=== PATIENT | male | born 1945 | race Caucasian/White ===

== ENCOUNTER 2016-09-17 09:18 | Observation (INO) ==
[2016-09-17 10:40] LABS: CLARITY SL. CLOUDY (CLEAR); COLOR YELLOW
[2016-09-17 10:41] LABS: BILIRUBIN URINE NEGATIVE (NEGATIVE); BLOOD URINE 3+ (NEGATIVE); GLUCOSE URINE NEGATIVE (NEGATIVE); LEUKOCYTES URINE 2+ (NEGATIVE); NITRITE URINE NEGATIVE (NEGATIVE); PROTEIN URINE 1+(30 mg/dL) mg/dL (NEGATIVE); UROBILINOGEN URINE 2+(4 mg/dL)
[2016-09-17 10:42] LABS: URINE EPITHELIAL CELLS <10 /HPF (<10); URINE WBC TNTC /HPF (<10)
[2016-09-17 10:43] LABS: URINE CAST GRANULAR PRESENT /LPF; URINE CRYSTAL NONE SEEN /HPF; URINE CULTURE PL NEEDED? YES; URINE SOURCE CLEAN CATCH
[2016-09-17] MEDS ORDERED: XYLOCAINE-MPF 1% INJ ONE (11:05)
[2016-09-17] MEDS ORDERED: ROCEPHIN IM ONE (11:05)
[2016-09-17] MEDS ORDERED: ZOFRAN IV ONE (11:17)
[2016-09-17] MEDS ORDERED: NS 1,000 ML IV ONE ×2 (11:17→13:20)
[2016-09-17] MEDS ORDERED: ROCEPHIN 1 GM/NS 1 GM/50 ML IVPB IV ONE ×2 (11:17→12:24)
[2016-09-17 11:55] LABS: BASO% 0.2 % (0.0-0.8); EOS# 0.02 X1000 (0.0-0.7); EOS% 0.1 % (0.0-10.0); HEMATOCRIT 34.6 % (42.0-52.0); HEMOGLOBIN 11.1 g/dL (14.0-18.0); IMM GRAN# 0.04 X1000 (0.0-0.04); IMM GRAN% 0.2 % (0.0-0.5); LYMPH# 0.63 X1000 (1.2-3.4); LYMPH% 3.6 % (20.5-51.1); MANUAL DIFF NEEDED? NO; MCH 25.7 PG (27-31); MCHC 32.1 g/dL (33-37); MCV 80.1 FL (81-99); MONO# 1.48 X1000 (0.11-0.59); MONO% 8.6 % (1.7-9.3); MPV 9.8 FL (7.4-10.4); NEUT% 87.3 % (42.2-75.2); PLT 259 X1000 (130-400); RBC 4.32 XMIL (4.7-6.1)
[2016-09-17 12:14] LABS: AGAP 7; ALBUMIN 3.4 g/dL (3.5-5.0); ALKALINE PHOSPHATASE 69 U/L (32-122); AMYLASE 34 U/L (20-200); BUN 7 mg/dL (8-22); CALCIUM 8.6 mg/dL (8.8-10.2); CHLORIDE 97 mmol/L (98-107); COSMO 265; GOT 26 U/L (10-34); GPT 26 U/L (10-44); LIPASE 24 U/L (13-60); POTASSIUM 4.3 mmol/L (3.5-5.1); SODIUM 133 mmol/L (136-145); TCO2 29 mmol/L (25-35); TOTAL PROTEIN 6.6 g/dL (6.3-8.3)
--- NOTE | 2016-09-17 13:15 | PROVIDER DOCUMENTATION ---
This chart was entered by Alec Cueva Scribe, acting as scribe for Jake Bolivar MD. HPI-Male Problem - General Chief Complaint: UTI Symptoms Stated Complaint: URINARY RETENTION Time Seen by Provider: 09/17/16 09:22 Source: patient Allergies/Adverse Reactions: Patient Allergies Allergy/AdvReac Type Severity Reaction Status Date / Time No Known Allergies Allergy Verified 07/19/16 09:19 Home Medications: Home Medication List Medication Instructions Recorded Confirmed Last Taken Type Albuterol [Albuterol Neb] 2.5 mg INH RTQ4H 07/19/16 09/17/16 Unknown History Amlodipine [Norvasc] 10 mg PO DAILY 07/19/16 09/17/16 Unknown History Aspirin 81 mg PO DAILY 07/19/16 09/17/16 Unknown History Folic Acid 1 mg PO DAILY 07/19/16 09/17/16 Unknown History Gabapentin [Gabapentin] 300 mg PO TID 07/19/16 09/17/16 Unknown History Hydrocodone/APAP 7.5 mg/325 mg 1 each PO Q6H PRN PRN #20 tablet 07/19/16 Unknown Rx [[place]-7.5] Hydrocodone/APAP 7.5 mg/325 mg 1 tab PO Q6-8H PRN PRN 07/19/16 09/17/16 Unknown History [[place]-7.5] Lisinopril/Hydrochlorothiazide 1 each PO DAILY 07/19/16 09/17/16 Unknown History [Lisinopril-Hctz 10-12.5 mg Tab] Lorazepam [Ativan] 0.5 mg PO QHS 07/19/16 09/17/16 Unknown History Omeprazole 20 mg PO DAILY 07/19/16 09/17/16 Unknown History Orphenadrine Citrate 100 mg PO BID 07/19/16 09/17/16 Unknown History - History of Present Illness-Male Nature of Presenting Problem: Patient is a 71 y/o M that presents to the ER with 2 days of dysuria and urinary retention. patient reports able to urinate but in small amounts. Patient denies fever/chills, cough/congestion, or abdominal pain. He did work outside 4 days ago and felt he was overheated. Location of Complaint: reports: urethral Quality of Pain: reports: burning Severity in ED: reports: mild Onset/Duration: reports: gradual, 2 days ago Timing: reports: still present, constant Context/Activities at Onset: reports: other (heat exposure) Urinary Symptoms: reports: dysuria, frequency, retention Associated Symptoms: reports: none Associated Symptoms: denies: back/neck pain, cough, fever/chills, nausea, sensory/motor loss, swelling/mass in abdomen, vomiting Similar Symptoms Previously?: No Recently seen or treated by another doctor?: No Review of Systems - Adult - REVIEW OF SYSTEMS - ADULT Constitutional: reports: chills. denies: fever Eyes: reports: no symptoms reported Ears, Nose, Mouth & Throat: denies: ear discharge, ear pain, sinus problem, throat pain, throat swelling Cardiovascular: denies: chest pain, palpitations, syncope Respiratory: denies: cough, shortness of breath, wheezing Gastrointestinal: denies: abdominal pain, diarrhea, nausea, vomiting Genitourinary: reports: dysuria, frequency, urinary retention Musculoskeletal: reports: no symptoms reported Integumentary: reports: no symptoms reported Neurological: reports: no symptoms reported Psychiatric: reports: no symptoms reported Endocrine: reports: no symptoms reported Hematologic/Lymphatic: reports: no symptoms reported Allergic/Immunologic: reports: no symptoms reported All Other Systems: Reviewed and Negative Past History - Adult - PAST MEDICAL HISTORY-ADULT Review of Records: reports: Old Records Reviewed, Nursing Assessment Review, Medications Reviewed Cardiovascular: reports: HTN - PRIOR SURGERIES/PROCEDURES Surgical/Procedure History: reports: back/neck (back) - IMMUNIZATION STATUS Childhood Immunizations: See Nurse Assessment Flu Vaccine: See Nurse Assessment - FAMILY HISTORY Family History: reviewed, not pertinent - SOCIAL HISTORY Smoking: cigarettes, less than 1 pack/day Alcohol Use Frequency: occasionally Living Situation: family Physical Exam-General - PHYSICAL EXAM-ADULT Initial Vital Signs Reviewed: Yes - CONSTITUTIONAL General Appearance: alert, no apparent distress - EYES Eyes: PERRL/EOMI, pink conjunctivae - HEAD, EARS, NOSE, MOUTH & THROAT HENMT: normocephalic/atraumatic, moist mucous membranes, normal ENT inspection - NECK Neck: full range of motion, normal inspection - RESPIRATORY Respiratory: lungs clear, normal breath sounds, no respiratory distress, no accessory muscle use - CARDIOVASCULAR Cardiovascular: regular rate, rhythm, no edema - GASTROINTESTINAL (ABDOMEN) Abdominal Exam: normal bowel sounds, non tender, soft, no organomegaly, no pulsatile mass - MUSCULOSKELETAL Back Exam: no CVA tenderness, no vertebral tenderness Extremity: normal range of motion, normal inspection, no pedal edema - SKIN Integumentary: normal color, warm/dry - NEUROLOGIC Neurologic: washer assembler II-XII nml as tested, no motor/sensory deficits - PSYCHIATRIC Psych/Mental Status: normal mood/affect, normal thought content, normal thought process, oriented x 3 Progress - PLAN OF CARE/RESULTS Progress/Plan/Lab Results: Vital Signs - 8 hr 09/17/16 09:21 09/17/16 12:51 09/17/16 12:56 Temperature 97.9 F 98.5 F Pulse Rate 92 H 76 82 Respiratory Rate 18 20 20 Blood Pressure 135/71 98/58 104/66 O2 Sat by Pulse Oximetry 100 90 L 90 L Laboratory Results - last 24 hr 09/17/16 09/17/16 09/17/16 09:35 11:36 11:36 WBC 17.27 H RBC 4.32 L Hgb 11.1 L Hct 34.6 L MCV 80.1 L MCH 25.7 L MCHC 32.1 L RDW Std Deviation 19.8 H Plt Count 259 MPV 9.8 Immature Gran % (Auto) 0.2 Neut % (Auto) 87.3 H Lymph % (Auto) 3.6 L Brewster % (Auto) 8.6 Eos % (Auto) 0.1 Baso % (Auto) 0.2 Immature Gran # (Auto) 0.04 Neut # (Auto) 15.07 H Lymph # (Auto) 0.63 L Brewster # (Auto) 1.48 H Eos # (Auto) 0.02 Baso # (Auto) 0.03 Sodium 133 L Potassium 4.3 Chloride 97 L Carbon Dioxide 29 Anion Gap 7 BUN 7 L Creatinine 0.6 L Estimated GFR/1.73 m2 > 60 BUN/Creatinine Ratio 12 Glucose 116 H Calculated Osmolality 265 Calcium 8.6 L Total Bilirubin 0.40 AST 26 ALT 26 Alkaline Phosphatase 69 Total Protein 6.6 Albumin 3.4 L Globulin 3.0 Albumin/Globulin Ratio 1.0 Amylase 34 Lipase 24 Urine Source CLEAN CATCH Urine Color YELLOW Urine Clarity SL. CLOUDY A Urine pH 9.0 Ur Specific [place] 1.010 Urine Protein 1+(30 mg/dL) A Urine Ketones 2+(Moderate) A Urine Blood 3+ A Urine Nitrite NEGATIVE Urine Bilirubin NEGATIVE Urine Urobilinogen 2+(4 mg/dL) Urine Microscopic RBC 10-20 A Urine WBC 2+ A Urine Microscopic WBC TNTC A Ur Epithelial Cells <10 Urine Crystals NONE SEEN Urine Bacteria 3+ Urine Casts GRANULAR PRESENT Urine Yeast NONE SEEN Urine Glucose NEGATIVE Orders Category Date Time Status Bladder Scan and Record Result ORDERED Care 09/17/16 09:28 Active Saline Loc DIRECTED Care 09/17/16 11:17 Active NPO Diet 09/17/16 11:17 Active AMYLASE [CHEM] Stat Lab 09/17/16 11:36 Completed BLOOD CULTURE [BLDCUL] Stat Lab 09/17/16 12:55 Ordered CBC WITH ELECTRONIC DIFF [HEME] Stat Lab 09/17/16 11:36 Completed COMPREHENSIVE METABOLIC PANEL [CHEM] Stat Lab 09/17/16 11:36 Completed LACTATE, PLASMA [CHEM] Stat Lab 09/17/16 12:55 Ordered LIPASE [CHEM] Stat Lab 09/17/16 11:[address] W/POSS RFLX CULT [URINALYSIS] Stat Lab 09/17/16 09:35 Completed URINE CULTURE [RM] Routine Lab 09/17/16 10:45 Ordered 0.9% Sodium Chloride Inj [Ns] 1,000 ml Med 09/17/16 11:17 Discontinued IV 999 mls/hr CefTRIAXONE 1 GM/NS [Rocephin 1 gm/Ns] Med 09/17/16 11:17 Discontinued 1 gm in 50 ml IV NOW CefTRIAXONE 1 GM/NS [Rocephin 1 gm/Ns] Med 09/17/16 12:24 Discontinued 1 gm in 50 ml IV NOW CefTRIAXONE [Rocephin] Med 09/17/16 11:05 Discontinued 1 gm IM NOW ONE Lidocaine 1% Pf [Xylocaine-Mpf 1%] Med 09/17/16 11:05 Discontinued 5 ml INJ NOW ONE Ondansetron [Zofran] Med 09/17/16 11:17 Discontinued 4 mg IV NOW ONE Orders Category Date Time Status Bladder Scan and Record Result ORDERED Care 09/17/16 09:[address] W/POSS RFLX CULT [URINALYSIS] Stat Lab 09/17/16 09:35 Completed URINE CULTURE [RM] Routine Lab 09/17/16 10:45 Ordered CefTRIAXONE [Rocephin] Med 09/17/16 11:05 Discontinued 1 gm IM NOW ONE Lidocaine 1% Pf [Xylocaine-Mpf 1%] Med 09/17/16 11:05 Discontinued 5 ml INJ NOW ONE Vital Signs Temp Pulse Resp BP Pulse Ox 09/17/16 09:21 97.9 F 92 H 18 135/71 100 No Known Allergies Allergy (Verified 07/19/16 09:19) Albuterol [Albuterol Neb] 2.5 mg INH RTQ4H 07/19/16 Amlodipine [Norvasc] 10 mg PO DAILY 07/19/16 Aspirin 81 mg PO DAILY 07/19/16 Folic Acid 1 mg PO DAILY 07/19/16 Gabapentin [Gabapentin] 300 mg PO TID 07/19/16 Hydrocodone/APAP 7.5 mg/325 mg [[place]-7.5] 1 each PO Q6H PRN PRN #20 tablet 10/27 Hydrocodone/APAP 7.5 mg/325 mg [[place]-7.5] 1 tab PO Q6-8H PRN PRN 07/19/16 Lisinopril/Hydrochlorothiazide [Lisinopril-Hctz 10-12.5 mg Tab] 1 each PO DAILY 07/19/16 Lorazepam [Ativan] 0.5 mg PO QHS 07/19/16 Omeprazole 20 mg PO DAILY 07/19/16 Orphenadrine Citrate 100 mg PO BID 07/19/16 Dietary Diet NPO Start FriSep 17 1117 Laboratory 09/17/16 09/17/16 09/17/16 11:36 11:36 09:35 WBC 17.27 H RBC 4.32 L Hgb 11.1 L Hct 34.6 L MCV 80.1 L MCH 25.7 L MCHC 32.1 L RDW Std Deviation 19.8 H Plt Count 259 MPV 9.8 Immature Gran % (Auto) 0.2 Neut % (Auto) 87.3 H Lymph % (Auto) 3.6 L Brewster % (Auto) 8.6 Eos % (Auto) 0.1 Baso % (Auto) 0.2 Immature Gran # (Auto) 0.04 Neut # (Auto) 15.07 H Lymph # (Auto) 0.63 L Brewster # (Auto) 1.48 H Eos # (Auto) 0.02 Baso # (Auto) 0.03 Sodium 133 L Potassium 4.3 Chloride 97 L Carbon Dioxide 29 Anion Gap 7 BUN 7 L Creatinine 0.6 L Estimated GFR/1.73 m2 > 60 BUN/Creatinine Ratio 12 Glucose 116 H Calculated Osmolality 265 Calcium 8.6 L Total Bilirubin 0.40 AST 26 ALT 26 Alkaline Phosphatase 69 Total Protein 6.6 Albumin 3.4 L Globulin 3.0 Albumin/Globulin Ratio 1.0 Amylase 34 Lipase 24 Urine Source CLEAN CATCH Urine Color YELLOW Urine Clarity SL. CLOUDY A Urine pH 9.0 Ur Specific [place] 1.010 Urine Protein 1+(30 mg/dL) A Urine Ketones 2+(Moderate) A Urine Blood 3+ A Urine Nitrite NEGATIVE Urine Bilirubin NEGATIVE Urine Urobilinogen 2+(4 mg/dL) Urine Microscopic RBC 10-20 A Urine WBC 2+ A Urine Microscopic WBC TNTC A Ur Epithelial Cells <10 Urine Crystals NONE SEEN Urine Bacteria 3+ Urine Casts GRANULAR PRESENT Urine Yeast NONE SEEN Urine Glucose NEGATIVE Vital Signs Temp Pulse Resp BP Pulse Ox 09/17/16 12:51 76 20 98/58 90 L 09/17/16 09:21 97.9 F 92 H 18 135/71 100 No Known Allergies Allergy (Verified 07/19/16 09:19) Albuterol [Albuterol Neb] 2.5 mg INH RTQ4H 07/19/16 Amlodipine [Norvasc] 10 mg PO DAILY 07/19/16 Aspirin 81 mg PO DAILY 07/19/16 Folic Acid 1 mg PO DAILY 07/19/16 Gabapentin [Gabapentin] 300 mg PO TID 07/19/16 Hydrocodone/APAP 7.5 mg/325 mg [[place]-7.5] 1 each PO Q6H PRN PRN #20 tablet 10/27 Hydrocodone/APAP 7.5 mg/325 mg [[place]-7.5] 1 tab PO Q6-8H PRN PRN 07/19/16 Lisinopril/Hydrochlorothiazide [Lisinopril-Hctz 10-12.5 mg Tab] 1 each PO DAILY 07/19/16 Lorazepam [Ativan] 0.5 mg PO QHS 07/19/16 Omeprazole 20 mg PO DAILY 07/19/16 Orphenadrine Citrate 100 mg PO BID 07/19/16 Dietary Diet NPO Start Fri 8 1117 Laboratory 09/17/16 09/17/16 09/17/16 11:36 11:36 09:35 WBC 17.27 H RBC 4.32 L Hgb 11.1 L Hct 34.6 L MCV 80.1 L MCH 25.7 L MCHC 32.1 L RDW Std Deviation 19.8 H Plt Count 259 MPV 9.8 Immature Gran % (Auto) 0.2 Neut % (Auto) 87.3 H Lymph % (Auto) 3.6 L Brewster % (Auto) 8.6 Eos % (Auto) 0.1 Baso % (Auto) 0.2 Immature Gran # (Auto) 0.04 Neut # (Auto) 15.07 H Lymph # (Auto) 0.63 L Brewster # (Auto) 1.48 H Eos # (Auto) 0.02 Baso # (Auto) 0.03 Sodium 133 L Potassium 4.3 Chloride 97 L Carbon Dioxide 29 Anion Gap 7 BUN 7 L Creatinine 0.6 L Estimated GFR/1.73 m2 > 60 BUN/Creatinine Ratio 12 Glucose 116 H Calculated Osmolality 265 Calcium 8.6 L Total Bilirubin 0.40 AST 26 ALT 26 Alkaline Phosphatase 69 Total Protein 6.6 Albumin 3.4 L Globulin 3.0 Albumin/Globulin Ratio 1.0 Amylase 34 Lipase 24 Urine Source CLEAN CATCH Urine Color YELLOW Urine Clarity SL. CLOUDY A Urine pH 9.0 Ur Specific [place] 1.010 Urine Protein 1+(30 mg/dL) A Urine Ketones 2+(Moderate) A Urine Blood 3+ A Urine Nitrite NEGATIVE Urine Bilirubin NEGATIVE Urine Urobilinogen 2+(4 mg/dL) Urine Microscopic RBC 10-20 A Urine WBC 2+ A Urine Microscopic WBC TNTC A Ur Epithelial Cells <10 Urine Crystals NONE SEEN Urine Bacteria 3+ Urine Casts GRANULAR PRESENT Urine Yeast NONE SEEN Urine Glucose NEGATIVE Orders Category Date Time Status Bladder Scan and Record Result ORDERED Care 09/17/16 09:28 Active Saline Loc DIRECTED Care 09/17/16 11:17 Active NPO Diet 09/17/16 11:17 Active AMYLASE [CHEM] Stat Lab 09/17/16 11:36 Completed BLOOD CULTURE [BLDCUL] Stat Lab 09/17/16 12:55 Ordered CBC WITH ELECTRONIC DIFF [HEME] Stat Lab 09/17/16 11:36 Completed COMPREHENSIVE METABOLIC PANEL [CHEM] Stat Lab 09/17/16 11:36 Completed LACTATE, PLASMA [CHEM] Stat Lab 09/17/16 12:55 Ordered LIPASE [CHEM] Stat Lab 09/17/16 11:[address] W/POSS RFLX CULT [URINALYSIS] Stat Lab 09/17/16 09:35 Completed URINE CULTURE [RM] Routine Lab 09/17/16 10:45 Ordered 0.9% Sodium Chloride Inj [Ns] 1,000 ml Med 09/17/16 11:17 Discontinued IV 999 mls/hr CefTRIAXONE 1 GM/NS [Rocephin 1 gm/Ns] Med 09/17/16 11:17 Discontinued 1 gm in 50 ml IV NOW CefTRIAXONE 1 GM/NS [Rocephin 1 gm/Ns] Med 09/17/16 12:24 Discontinued 1 gm in 50 ml IV NOW CefTRIAXONE [Rocephin] Med 09/17/16 11:05 Discontinued 1 gm IM NOW ONE Lidocaine 1% Pf [Xylocaine-Mpf 1%] Med 09/17/16 11:05 Discontinued 5 ml INJ NOW ONE Ondansetron [Zofran] Med 09/17/16 11:17 Discontinued 4 mg IV NOW ONE Result Diagrams: 09/17/16 11:36 09/17/16 11:36 - REASSESSMENT Reassessment #1 Time Reassessed: 12:57 Status: worsening Reassessment Comment: BP is 70s systolic. pt will be admitted - CONSULTS/PCP/HOSPITALIST Notification #1 *Consult/PCP/Hospitalist*: ( [facility] spoke with) Time Discussed: 13:04 Consult Disposition: Will see in ED, Admit Departure - Departure Date of Disposition Decision: 09/17/16 Time of Disposition Decision: 13:04 DIAGNOSIS: UTI (urinary tract infection), Sepsis due to urinary tract infection, Pyelonephritis Disposition: ADMITTED INPATIENT 09 Certified Medical Emergency: Emergent Condition: Stable Additional Freetext Instructions: jian ED Follow Up Instructions: You have been treated by a care provider in the Emergency Department. These instructions are being provided to you so you can have an understanding of how to care for yourself upon discharge. Upon discharge from the Emergency Department, you are responsible for making arrangements for follow-up care by a physician of your choice. Take all prescribed medications as directed. Return to the Emergency Department immediately for any new or worsening symptoms. You may call the Physician Referral phone number at [phone] to obtain a list of Physicians who are taking new patients. Referrals and Follow-Ups: None,PCP [Primary Care Provider] - Jed Miller MD [ACTIVE STAFF PHYSICIAN] - Discharge Education: Urinary Tract Infection, [id number] - Critical Care Note This patient required my direct & personal management of CC.: Yes Total Time (mins): 55 Critical Care Statement: This patient required my direct personal management to treat or rule out processes, the absence of which, could potentiallly result in sudden, clinically significant life or limb threatening deterioration. Attestation - Physician/ BHAVESH Attestation Patient care was provided by Advanced Practice Provider:: No The physician spent face to face time with patient:: Yes Advanced Practice Provider documentation review:: Supervising physician onsite and consulted in the evaluation and care of this patient. The physician did have a face to face encounter with the patient. This chart was documented by the indicated scribe, (Alec Cueva, Scribe) and accurately reflects the services I performed and decisions made by me, Jake Bolivar MD, as attested by the provider's signature.
[2016-09-17] MEDS: NS 1,000 ML IV SCH ×2 (13:23→13:35)
[2016-09-17] MEDS ORDERED: ZOFRAN IV PRN (13:23)
[2016-09-17] MEDS ORDERED: NS 2,000 ML ONE (13:27)
[2016-09-17] MEDS ORDERED: NORCO-7.5 PO PRN (13:28)
[2016-09-17] MEDS: ALBUTEROL NEB INH SCH ×3 (14:45→23:25)
[2016-09-17] MEDS: NEURONTIN PO SCH (16:34)
--- NOTE | 2016-09-17 16:43 | HISTORY AND PHYSICAL ---
CHIEF COMPLAINT: Dysuria, polyuria with suprapubic. Pain and weakness. HISTORY OF PRESENT ILLNESS: This is a 71-year-old gentleman with a history of low back pain requiring multiple injections for pain as well as chronic narcotic use. He presented to the emergency room complaining of 3 days of fever, generalized weakness, suprapubic pain with urinary retention having every 30-45 minute frequency at times. He states the symptoms began while he was working outside in the heat Friday. After a few hours he became weak and "felt like I could not go anymore," he said he laid down and he slept for quite a few hours it woke up feeling better, got out Friday in the heat, symptoms returned. Through the night last night into the morning he had more weakness, stated he could not sleep for frequent urination. Therefore he came to the emergency room for further evaluation. He did state that he had chills and generalized body aches alternating with feeling hot all over that started Friday night and Friday and then recurred last night. He also has a long history of chronic narcotic use due to back pain. States it has been 4-5 days since his last bowel movement. Of note the patient did have steroid injections for pain management within the last 2 weeks. LABS: He was found to have a white count of 17.2 with urine microscopic that has revealed 3+ blood, 10-20 red blood cells, too numerous to count white blood cells, and 3+ bacteria. Blood cultures and urine cultures were obtained in the emergency room. He was given Rocephin and he is being admitted for further evaluation and treatment. PAST MEDICAL HISTORY: Hypertension, frequency, urgency, nocturia. PAST SURGICAL HISTORY: Denies. SOCIAL HISTORY: He smokes about a half pack a day. He denies alcohol or illicit drug use. He is , lives with his . ALLERGIES: No known drug allergies. HOME MEDICATIONS: A list will be obtained. REVIEW OF SYSTEMS: A 14 point review of systems is discussed with patient with pertinent positives stated in HPI. He denies chest pain, palpitations, syncope, dizziness, any nausea, vomiting, diarrhea, black or bloody vomitus, black or bloody stools, shortness of breath, PND, orthopnea. PHYSICAL EXAMINATION: GENERAL: This is a 71-year-old man who is lying in the bed in no distress. VITAL SIGNS: Blood pressure is 105/64 with a heart rate of 81, respirations are 18, temperature is 98.6 degrees oral with O2 saturation of 98%. HEENT: Head is normocephalic, atraumatic. Pupils equal, round, react to light. EOMs are intact. Sclerae anicteric. Mucous membranes are dry. NECK: Supple. Trachea midline. CARDIOVASCULAR: Regular rate and rhythm. S1, S2 appreciated. PULMONARY: Breath sounds are clear. No increased work of breathing noted. GASTROINTESTINAL: Abdomen soft. It is distended. Is tender in suprapubic area with bowel sounds in all 4 quadrants. BACK: No CVAT. No spine tenderness. MUSCULOSKELETAL: Good range of motion joints. NEUROLOGIC: He is alert, oriented x3. Cranial nerves 2-12 grossly intact. EXTREMITIES: No clubbing, cyanosis, or edema. Calves are nontender. Pulses are palpable x4. DIAGNOSTICS: WBC is 17.2 with hemoglobin 11.1, hematocrit 34.6 and platelets of 259,000. Sodium is 133, potassium 4.3, BUN 7, creatinine 0.6 with a glucose of 116. Blood cultures and urine cultures are pending. ASSESSMENT AND PLAN: 1. Possible urinary tract infection. 2. Benign prostatic hypertrophy. Patient has had frequency, urgency with burning with urination along with suprapubic tenderness since Friday. Urine cultures are pending. Will continue Rocephin at present and once sensitivities return if needed antibiotics may be changed. 3. Leukocytosis. Urinalysis looks consistent with a urinary tract infection and stated above cultures are pending. The patient also has a long history of frequency, nocturia. 4. Sepsis versus systemic inflammatory response syndrome. He does have a elevated white count and symptoms consistent with urinary tract infection. Blood pressure did drop to the 70s although in talking with the patient he has been working outside over the last 3 days and had not had very much oral intake, dehydration could well be a factor as he does have dry mucous membranes and poor skin turgor. Blood cultures have been obtained. We will hydrate and trend labs. 5. Hypotension. As stated above this could very well be from dehydration. Will continue with vital signs and hydration. 6. Hypertension history of. Will identify his home medications and continue as appropriate. 7. Chronic back pain with chronic narcotic use and chronic steroid injections. Patient states that his last injections were within the last 2 weeks. Will identify his medications and continue as appropriate. 8. Chronic constipation secondary to above. Will start bowel regimen once CT scan is performed and then if appropriate we will start a bowel regimen. 9. Questionable chronic obstructive pulmonary disease. Patient states he has been diagnosed with some "lung troubles." He is on albuterol nebs at home. He is wheezing, will give DuoNeb q.4 hours as needed and continue with antibiotic coverage. 10. Deep vein thrombosis prophylaxis. Will use SCDs. We will hold off on anticoagulation as the patient has had recent steroid injections. 11. Gastrointestinal prophylaxis. Will use Prilosec. 12. Benign prostatic hypertrophy. The patient had been told in the past his prostate was enlarged. He states that he has nocturia up to 10 times a night with frequency, urgency and voiding small amounts over the last few years. Will start Flomax, will scan his bladder every morning and follow. Further treatments pending hospital course. Dictated by POLI Molina for Austin Smart MD cc: POLI Molina MD
--- NOTE | 2016-09-17 18:05 | Diag Imaging Result Doc PS360 ---
EXAM: ABDOMEN/PELVIS W/PO AND IV CON HISTORY: abd pain, leukocytosis, ? UTI TECHNIQUE: CT abdomen and pelvis with contrast. Dose reduction protocol. COMPARISON: None. FINDINGS: There is fatty infiltration of the liver and there are several tiny hypodense lesions believed to be cysts. Normal spleen, pancreas, gallbladder, and adrenal glands. There are several tiny renal stones. Bilateral perinephric nonspecific inflammation, but no hydronephrosis. No aortic aneurysm. Moderate atherosclerosis. No bowel obstruction. No inflammation about the cecum. Mild thickening to the wall of the distal rectum near the anus. There are hypodense areas within the prostate. Mild scoliosis with prominent degenerative changes although there are postsurgical changes in the lower lumbar spine, there is still spinal stenosis at L5-S1 due to a bulging disc and prominent facet hypertrophy on the left. Marked narrowing to the left neural foramen. IMPRESSION: 1. Possible proctitis and/or prostatitis 2. Spinal stenosis in the lower lumbar spine 3. Fatty infiltration of the liver 4. Nonobstructing renal stones Electronically signed by Jono Yan 09/17/2016 6:03 PM
[2016-09-17] MEDS: DOXYCYCLINE 100 MG in NS 250 ML IV SCH (21:04)
[2016-09-17] MEDS: FLOMAX PO SCH (21:04)
[2016-09-17] MEDS: ATIVAN PO SCH (21:04)
[2016-09-17] MEDS: NORFLEX PO SCH (21:04)
[2016-09-17] MEDS: MIRALAX PO SCH (21:05)
[2016-09-17] MEDS: NORCO-7.5 PO PRN (21:12)
[2016-09-18] MEDS: NS 1,000 ML IV SCH ×2 (02:00→16:26)
[2016-09-18] MEDS: ALBUTEROL NEB INH SCH ×6 (03:44→23:41)
[2016-09-18] MEDS: NORCO-7.5 PO PRN (06:06)
[2016-09-18] MEDS: PRILOSEC PO SCH (06:06)
[2016-09-18 06:15] LABS: MCH 25.4 PG (27-31); MCHC 31.3 g/dL (33-37); MCV 81.2 FL (81-99); MPV 10.6 FL (7.4-10.4); RBC 3.94 XMIL (4.7-6.1)
[2016-09-18 06:48] LABS: AGAP 11; ALBUMIN 2.9 g/dL (3.5-5.0); ALKALINE PHOSPHATASE 69 U/L (32-122); BUN 6 mg/dL (8-22); CHLORIDE 99 mmol/L (98-107); COSMO 265; GOT 20 U/L (10-34); GPT 24 U/L (10-44); MAGNESIUM 1.9 mg/dL (1.5-2.7); POTASSIUM 3.4 mmol/L (3.5-5.1); SODIUM 134 mmol/L (136-145); TCO2 24 mmol/L (25-35); TOTAL PROTEIN 5.8 g/dL (6.3-8.3)
[2016-09-18] MEDS: ASPIRIN PO SCH (08:09)
[2016-09-18] MEDS: DOXYCYCLINE 100 MG in NS 250 ML IV SCH ×2 (08:09→20:42)
[2016-09-18] MEDS: NORVASC PO SCH (08:09)
[2016-09-18] MEDS: FOLIC ACID PO SCH (08:09)
[2016-09-18] MEDS: NORFLEX PO SCH ×2 (08:10→20:43)
[2016-09-18] MEDS: MIRALAX PO SCH ×2 (08:10→20:43)
[2016-09-18] MEDS: NEURONTIN PO SCH ×3 (08:10→16:25)
[2016-09-18] MEDS ORDERED: HYDROCHLOROTHIAZIDE PO SCH (09:00)
[2016-09-18] MEDS ORDERED: PRINIVIL PO SCH (09:00)
[2016-09-18] MEDS ORDERED: NON-FORMULARY MED (Lisinopril/Hydrochlorothiazide [Lisinopril-Hctz 10-12.5 Mg Tab] 1 EACH) PO SCH (09:00)
[2016-09-18] MEDS: ROCEPHIN 1 GM/NS 1 GM/50 ML IVPB IV SCH (11:11)
[2016-09-18] MEDS ORDERED: ZANAFLEX PO PRN (20:01)
[2016-09-18] MEDS ORDERED: MOBIC PO PRN (20:04)
[2016-09-18] MEDS: ATIVAN PO SCH (20:42)
[2016-09-18] MEDS: FLOMAX PO SCH (20:42)
[2016-09-19] MEDS: NS 1,000 ML IV SCH ×2 (02:07→13:07)
[2016-09-19] MEDS: ALBUTEROL NEB INH SCH ×4 (04:34→15:17)
[2016-09-19] MEDS: PRILOSEC PO SCH (06:17)
[2016-09-19] MEDS: DOXYCYCLINE 100 MG in NS 250 ML IV SCH (08:36)
[2016-09-19] MEDS: FOLIC ACID PO SCH (08:37)
[2016-09-19] MEDS: NEURONTIN PO SCH ×3 (08:37→17:48)
[2016-09-19] MEDS: MIRALAX PO SCH (08:37)
[2016-09-19] MEDS: ASPIRIN PO SCH (08:37)
[2016-09-19] MEDS: NORVASC PO SCH (08:37)
[2016-09-19] MEDS: NORFLEX PO SCH (08:37)
[2016-09-19] MEDS: ROCEPHIN 1 GM/NS 1 GM/50 ML IVPB IV SCH (10:58)
[2016-09-19] MEDS ORDERED: MAGNESIUM SULFATE 2 GM/S.W.I. 2 GM/50 ML IVPB IV ONE (11:10)
[2016-09-19] MEDS ORDERED: KLOR-CON PO ONE (11:11)
--- NOTE | 2016-09-19 13:07 | CONSULTATION ---
DATE OF CONSULTATION: 09/19/2016 INDICATION: Arrhythmia. HISTORY OF PRESENT ILLNESS: Mr. Kidd is a 71-year-old white male with a history of hypertension, who presented for evaluations of fevers, chills and difficulty urinating. Over that time, he has been diagnosed with what appears to be a prostatitis as well as proctitis. Over the course of the hospitalization, he has had some issues with relative arrhythmias. At 1:41 a.m. this morning, he had what appeared to be an idioventricular rhythm occurring with a rate of what appears to be just around 100 beats per minute. This broke into a sinus rhythm. Subsequent EKGs have shown sinus rhythm with a rate of 76 beats per minute, occasional PACs noted on that study. He had no symptoms at that time and was reportedly asleep. He has not had any episodes of chest pain. He is a recent transfer from [facility] in the [facility], and has been working on his house doing some refurbishing, and says that he has no issues with significant levels of activity that he performs with that. PAST MEDICAL HISTORY: 1. Hypertension. 2. Spinal stenosis with multiple back surgeries. 3. BPH. SOCIAL HISTORY: He previously smoked, but reports that he quit recently. However, per history it says that he smokes about a half pack per day. He does drink alcohol he thinks upwards of anywhere from 3-5 cocktails per day. He is . REVIEW OF SYSTEMS: A 10 system review of systems is negative, except for those things mentioned in HPI. FAMILY HISTORY: Significant for cancer and coronary disease in his father. His mother has a history of a stroke. PHYSICAL EXAMINATION: Vital Signs: He has been afebrile during this hospitalization. His heart rates documented mainly in the 70s to 90s. His blood pressure most recently was 118/55. General: He is in no acute distress. HEENT: Oropharynx is moist. Normal dentition. Eye examination shows pink conjunctivae, white sclerae. Neck: Examination shows no obvious thyromegaly or thyroid tenderness. Cardiovascular: He is in a regular rate and rhythm. He has no obvious murmurs. He has no S3. He has no lower extremity edema. Chest: Exam is clear bilaterally. He has no increased work of breathing. Abdomen: Soft, nontender, nondistended. He has no obvious organomegaly. Skin Exam: Warm and dry throughout. Neurological: He is moving all extremities well. Cranial nerves 2-12 are intact without any sensation deficits. Psychiatric: Alert and oriented and pleasant. He has normal mood and affect. PERTINENT DATA: His EKG is as listed above. CT scan shows possible proctitis and/or prostatitis. Some fatty infiltration of the liver with some non obstructing renal stones noted. His laboratory data shows a white count of 8, hematocrit is 32, his platelet count is 218. His sodium is 134, potassium 3.4, BUN 6 and creatinine 0.5. Cardiac enzymes are negative. His albumin yesterday was 2.9 and was 3.4 on presentation. His urinalysis shows [id number]-[id number]-count WBCs, 3+ blood, 3+ bacteria. ASSESSMENT: 1. Prostatitis/proctitis. 2. Idioventricular rhythm. PLAN: Echocardiogram is pending. If that is unremarkable, then I would likely just pursue electrolyte repletion as you are already doing. He certainly seems to have some changes in his laboratories consistent with possible excessive alcohol, and I have advised him about reducing his alcohol intake significantly. His echo is to be checked. We will likely follow him with a home outpatient heart monitor to evaluate for any further arrhythmias. We will see him back in clinic, and at that time may consider further evaluations depending on his symptomatology. cc: Winston Mccall MD
[2016-09-19 16:36] VITALS: BP 120/70
--- NOTE | 2016-09-20 09:30 | EKG Report ---
Test Performed on : 09/19/2016 02:21:18 AM Test Reason : ROUTINE Blood Pressure : / mmHG Vent. Rate : 076 BPM Atrial Rate : 076 BPM P-R Int : 186 ms QRS Dur : 144 ms QT Int : 400 ms P-R-T Axes : 049 -71 033 degrees QTc Int : 450 ms Sinus rhythm. with premature atrial complexes. Left axis deviation Right bundle branch block Inferior infarct , age undetermined Abnormal ECG No previous ECGs available Confirmed by Jordan Higginbotham MD ([id number]) on 10/16/2016 7:22:35 PM
--- NOTE | 2016-09-20 21:14 | ECHO REPORT ---
ORDER DATE: 09/19/2016 MEASUREMENTS: Left ventricular end-diastolic diameter 4.8, end-systolic diameter 3.5, septal thickness 1.1, posterior wall thickness 1.1, left atrium 3.7, aortic root 3.3. SUMMARY: 1. Technically difficult study. 2. Mild sclerosis of trileaflet aortic valve demonstrated with adequate aortic valve opening evident on 2-dimensional images. Mitral, tricuspid and pulmonic valves are without evidence of structural abnormality with mild mitral regurgitation and mild tricuspid regurgitation. The estimated systolic PA pressure by Doppler is 35 to 40 mmHg. Aortic root is normal size. 3. Normal left ventricular dimensions demonstrated. Estimated left ventricular ejection fraction appears to be approximately 55%. No regional wall motion abnormalities can be appreciated. Left atrium, right atrium, right ventricle are normal in size with normal right ventricular systolic function. 4. No pericardial effusion. 5. Appearance of inferior vena cava suggests normal central venous pressure. cc: MD Mojgan Luna CRNP
--- NOTE | 2016-09-21 18:16 | DISCHARGE SUMMARY ---
ADMISSION DATE: 09/17/2016 DISCHARGE DATE: 09/19/2016 DIAGNOSES: 1. Morganella urinary tract infection. 2. Benign prostatic hypertrophy. 3. Leukocytosis secondary to #1, resolved. 4. Sepsis versus systemic inflammatory response syndrome resolved. 5. Hypotension resolved. 6. History of hypertension. 7. Chronic back pain with chronic narcotic use as well as chronic steroid injection. 8. Chronic constipation. 9. Chronic obstructive pulmonary disease. DIAGNOSTICS: 1. 09/17/2016 CT of the abdomen and pelvis. Revealed possible proctitis and/or prostatitis. Spinal stenosis in the lower spine. Fatty infiltration of the liver. Nonobstructing renal stones. 2. Echocardiogram revealed mild sclerosis of the trileaflet aortic valve with adequate valve opening. Mitral, tricuspid and pulmonic valves are without evidence of structure abnormality with mild mitral regurgitation. Normal left ventricular dimensions demonstrated. Left ventricular ejection fraction 55%. No wall motion abnormalities can be appreciated. No pericardial effusion. CONSULTATIONS: Dr. Winston Mccall. HOSPITAL COURSE: Mr. Kidd presented to the emergency room complaining of dysuria, pain and weakness. He was found to have a urinary tract infection that eventually grew out Morganella for which he received Rocephin and was transitioned over to Omnicef for discharge. He did complain of some weakness. After having hydration weakness subsided and he had no further. He did complain of feeling the urge to have a bowel movement with no relief over the week prior as well as having a fullness in his perineal area with discomfort on sitting on a hard chair. CT scan revealed proctitis and/or prostatitis. This did improve throughout the hospitalization. We did continue his home medications adding Flomax. His blood pressures were primarily in the 104-120/50-60 range with heart rates primarily in the 70s to 80s. He did have some issues with arrhythmias through the hospitalization and on the morning of the he did have what appeared to be an accelerated idioventricular rhythm, around 100 beats per minute. Did break to a sinus rhythm. He was asymptomatic at the time. He denies any prior rhythm problems or issues with any increased levels of activity. Cardiology was consulted. Echocardiogram was performed which was essentially negative. Cardiology felt that this is primarily dehydration and electrolyte imbalance and agree with repleting as needed. He does drink excessive alcohol and during the hospitalization, he was monitored for any alcohol withdrawal or DTs for which he did not have. MEDICATIONS: Tizanidine 4 mg t.i.d. Meloxicam 15 daily. [place] 7.5 q.6 hours p.r.n. Gabapentin 600 t.i.d. Furosemide 20 daily. Orphenadrine citrate 100 b.i.d. Omeprazole 20 daily. Ativan 0.5 at bedtime. Lisinopril hydrochlorothiazide 10/12.5 daily. Folic acid daily. Aspirin 81 mg daily. Norvasc 10 daily. Flomax 0.4 at bedtime. Doxycycline 100 mg p.o. b.i.d. Omnicef 300 mg b.i.d. for 5 days. FOLLOWUP: He is to follow up with Dr. Winston Mccall. He is to call in the morning to set up an appointment to get a monitor. He also needs to follow up with Dr. Jed Miller for BPH. He is being discharged home in stable condition with family members. TIME SPENT: This is a greater than 30 minute discharge. Dictated by POLI Molina for Austin Smart MD cc: POLI Molina MD
== END 2016-09-19 19:28 | disposition home or self-care (01) ==
LOC: P.ED 09:18 → INTOOBSV 09:19 → P.MEDSURG 09:19
PROVIDERS: ATTEND Family Medicine